=== PATIENT | female | born 1955 ===

== ENCOUNTER 2016-11-08 10:43 | Emergency (ER) | payer BC ==
[2016-11-08 10:55] VITALS: BP 147/78; PULSE 82; TEMP 97.9; O2SAT 97; BMI 31.7
--- NOTE | 2016-11-08 12:30 | ED PDOC ---
HPI: Back Time Seen by Provider: 11/08/16 11:11 Chief Complaint (Nursing): Back Pain Chief Complaint (Provider): Back Pain History Per: Patient History/Exam Limitations: no limitations Onset/Duration Of Symptoms: Days Current Symptoms Are (Timing): Still Present Quality Of Discomfort: "Pain" Severity: Mild Previous Symptoms: None Associated Symptoms: None Exacerbating Factor(s): Turning, Movement Additional Complaint(s): Patient is a 61 year old female who presents to ED for lower back pain that began yesterday. Patient described pain as left sided, radiating up and worsened with movement or twisting. Denies left pain or abdominal pain. 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 Past Medical History Reviewed: Historical Data, Nursing Documentation, Vital Signs Vital Signs: Last Vital Signs Temp 97.9 F 11/08/16 10:54 Pulse 82 11/08/16 10:54 Resp BP 147/78 11/08/16 10:54 Pulse Ox 97 11/08/16 10:54 - Medical History PMH: Hyperthyroidism - Surgical History Surgical History: No Surg Hx - Family History Family History: States: No Known Family Hx - Living Arrangements Living Arrangements: With Family - Immunization History Hx Tetanus Toxoid Vaccination: No Hx Influenza Vaccination: No Hx Pneumococcal Vaccination: No - Home Medications Home Medications: Ambulatory Orders Medication Instructions Recorded Acetaminophen/Oxycodone Hydr 1 tab PO Q8 #15 tab 03/30/13 [Percocet 325 mg-5 mg] Naprosyn 03/30/13 Naproxen 375 mg PO Q8 PRN #21 tab 10/29/14 diaZEpam [Valium] 5 mg PO Q6 PRN #14 tab 10/29/14 oxyCODONE/Acetaminophen [Percocet 1 ea PO Q6 #10 tab 10/29/14 5/325 mg Tab] Acetaminophen/Codeine Phosph 1 tab PO Q4 #10 tab 02/02/15 [Acetaminophen and Codeine Phosphate #3 300 mg] Polymyxin/Trimethoprim Sulfate 100 drop OD BID #1 bottle 04/22/16 [Polytrim Ophth Soln] Cyclobenzaprine [Cyclobenzaprine 10 mg PO TID PRN #15 tab 11/08/16 HCl] Naproxen 500 mg PO BID #20 tab 11/08/16 - Allergies Allergies/Adverse Reactions: Allergies Allergy/AdvReac Type Severity Reaction Status Date / Time No Known Allergies Allergy Verified 11/08/16 11:02 Review of Systems Constitutional: Negative for: Fever, Weakness Eyes: Negative for: Vision Change Respiratory: Negative for: Shortness of Breath Gastrointestinal: Negative for: Nausea, Vomiting, Abdominal Pain Musculoskeletal: Positive for: Back Pain. Negative for: Neck Pain, Leg Pain Neurological: Negative for: Weakness, Numbness, Dizziness Physical Exam - Reviewed Nursing Documentation Reviewed: Yes Vital Signs Reviewed: Yes - Physical Exam Appears: Positive for: Non-toxic, No Acute Distress Skin: Positive for: Normal Color, Warm Eye Exam: Positive for: Normal appearance Neck: Positive for: Normal, Painless ROM, Supple Cardiovascular/Chest: Positive for: Regular Rate, Rhythm. Negative for: Murmur Respiratory: Positive for: Normal Breath Sounds. Negative for: Respiratory Distress Back: Positive for: Normal Inspection, Other (left paraspinal (-) midline (-) deformity) Extremity: Positive for: Normal ROM. Negative for: Pedal Edema Neurologic/Psych: Positive for: Alert, Oriented - ECG O2 Sat by Pulse Oximetry: 97 (RA) Pulse Ox Interpretation: Normal - Progress Re-evaluation Time: 13:41 Condition: Re-examined, Improved Medical Decision Making Medical Decision Making: Time: 1145 Initial impression: Muscle spasm,atraumatic low risk back pain. Initial plan: -- Flexeril -- toradol -- U/A Time: 1320 Patient on re-evaluation reports feeling better, pain improved. Instructed patient to take Motrin as needed at home for pain and to follow up with PMD Scribe Attestation: Documented by Verna Tripathi acting as a scribe for Alessandro Metcalf MD. Scribe Attestation: All medical record entries made by the Scribe were at my direction and personally dictated by me. I have reviewed the chart and agree that the record accurately reflects my personal performance of the history, physical exam, medical decision making, and the department course for this patient. I have also personally directed, reviewed, and agree with the discharge instructions and disposition. Disposition - Clinical Impression Clinical Impression: Back pain - Patient ED Disposition Is Patient to be Admitted: No Doctor Will See Patient In The: Office Counseled Patient/Family Regarding: Studies Performed, Diagnosis, Need For Followup - Disposition Referrals: Kingsley Beavers MD [Family Provider] - Disposition: Routine/Home Disposition Time: 13:42 Condition: GOOD Additional Instructions: Follow up with your PCP in 2-3 days. Prescriptions: Cyclobenzaprine [Cyclobenzaprine HCl] 10 mg PO TID PRN #15 tab PRN Reason: Muscle Spasm Naproxen 500 mg PO BID #20 tab Instructions: Muscle Spasm (ED)
[2016-11-08 12:41] LABS: RBC URINE 2 /hpf (0-3); URINE BILIRUBIN NEGATIVE (NEGATIVE); URINE BLOOD MODERATE (NEGATIVE); URINE COLOR STRAW (YELLOW); URINE GLUCOSE (UA) NEG (Normal); URINE KETONE NEGATIVE (NEGATIVE); URINE LEUKOCYTE ESTERASE NEG Leu/uL (Negative); URINE PROTEIN NEGATIVE (NEGATIVE); URINE UROBILINOGEN 0.2-1.0 mg/dL (0.2-1.0); WBC URINE 1 /hpf (0-5)
== END 2016-11-08 14:02 | disposition home or self-care (01) ==
LOC: H.ER 10:43
DX: M54.9 Dorsalgia, unspecified (principal); E05.90 Thyrotoxicosis, unspecified without thyrotoxic crisis or storm
CPT/HCPCS: 81003; 96372; 99282; J1885

== ENCOUNTER 2016-11-09 21:01 | Emergency (ER) | payer BC ==
[2016-11-09 21:01] VITALS: BMI 31.7
[2016-11-09 21:05] VITALS: BP 156/81; PULSE 95; RESP 16; TEMP 98.9; O2SAT 100
--- NOTE | 2016-11-09 21:56 | ED PDOC ---
HPI: Back Time Seen by Provider: 11/09/16 21:27 Chief Complaint (Nursing): Back Pain Chief Complaint (Provider): Back Pain History Per: Patient, Family History/Exam Limitations: no limitations Onset/Duration Of Symptoms: Days Current Symptoms Are (Timing): Still Present Additional Complaint(s): 21:27 Court Salvador is a 61 year old female that presents to the ED with a chief complaint of left-sided back pain that radiates to her lower and upper back that is worsened with deep-breathing and walking. She has associated mild shortness of breath. Patient was seen in ED yesterday, was given Toradol and muscle relaxer, had some improvement and was diagnosed with a muscle spasm. However, patient reports that from the time she got home through today her pain has progressively worsened. She denies any chest pain, difficulty urinating or hematuria, abdominal pain, or fever. Last BM was yesterday morning, PERC neg. Past Medical History Reviewed: Historical Data, Nursing Documentation, Vital Signs Vital Signs: Last Vital Signs Temp 98.9 F 11/09/16 21:03 Pulse 95 H 11/09/16 21:03 Resp 16 11/09/16 21:03 BP 156/81 H 11/09/16 21:03 Pulse Ox 100 11/09/16 21:03 - Medical History PMH: Hyperthyroidism - Family History Family History: States: Unknown Family Hx - Immunization History Hx Tetanus Toxoid Vaccination: No Hx Influenza Vaccination: No Hx Pneumococcal Vaccination: No - Home Medications Home Medications: Ambulatory Orders Medication Instructions Recorded Acetaminophen/Oxycodone Hydr 1 tab PO Q8 #15 tab 03/30/13 [Percocet 325 mg-5 mg] Naprosyn 03/30/13 Naproxen 375 mg PO Q8 PRN #21 tab 10/29/14 diaZEpam [Valium] 5 mg PO Q6 PRN #14 tab 10/29/14 oxyCODONE/Acetaminophen [Percocet 1 ea PO Q6 #10 tab 10/29/14 5/325 mg Tab] Acetaminophen/Codeine Phosph 1 tab PO Q4 #10 tab 02/02/15 [Acetaminophen and Codeine Phosphate #3 300 mg] Polymyxin/Trimethoprim Sulfate 100 drop OD BID #1 bottle 04/22/16 [Polytrim Ophth Soln] Cyclobenzaprine [Cyclobenzaprine 10 mg PO TID PRN #15 tab 11/08/16 HCl] Naproxen 500 mg PO BID #20 tab 11/08/16 Nitrofurantoin Macrocrystals 100 mg PO BID #14 cap 11/09/16 [Macrobid] - Allergies Allergies/Adverse Reactions: Allergies Allergy/AdvReac Type Severity Reaction Status Date / Time No Known Allergies Allergy Verified 11/08/16 11:02 Review of Systems Constitutional: Negative for: Fever Cardiovascular: Negative for: Chest Pain Respiratory: Positive for: Shortness of Breath (slight) Gastrointestinal: Negative for: Abdominal Pain Genitourinary Female: Negative for: Dysuria, Hematuria Musculoskeletal: Positive for: Back Pain (left-sided, radiated to upper and lower portion of back) Physical Exam - Reviewed Nursing Documentation Reviewed: Yes Vital Signs Reviewed: Yes - Physical Exam Appears: Positive for: Non-toxic, In Acute Distress (Pt is in mild acute distress) Head Exam: Positive for: ATRAUMATIC, NORMOCEPHALIC Skin: Positive for: Normal Color, Warm Cardiovascular/Chest: Positive for: Regular Rate, Rhythm. Negative for: Murmur Respiratory: Positive for: Normal Breath Sounds. Negative for: Respiratory Distress Gastrointestinal/Abdominal: Positive for: Soft. Negative for: Tenderness Back: Negative for: Normal Inspection (TTP left upper back) Neurologic/Psych: Positive for: Alert, Oriented - Laboratory Results Result Diagrams: 11/09/16 21:51 11/09/16 21:51 - ECG O2 Sat by Pulse Oximetry: 100 (RA) Pulse Ox Interpretation: Normal Medical Decision Making Medical Decision Makin:47 Impression: Muscle Spasm Initial Plan: * CBC * CMP * Urinalysis * D-Dimer * Toradol 50 mg IV * * Ct negative fo renal stone * UA: shows UTI- will d.c with macrobid and advised to f.u with pmd stable VS and well appearing in ED however if worsened with fever to return to Ed. Scribe Attestation: Documented by Dagmar Burger, acting as a scribe for Vaishali Nj PA-C. Provider Scribe Attestation: All medical record entries made by the Scribe were at my direction and personally dictated by me. I have reviewed the chart and agree that the record accurately reflects my personal performance of the history, physical exam, medical decision making, and the department course for this patient. I have also personally directed, reviewed, and agree with the discharge instructions and disposition. Disposition - Clinical Impression Clinical Impression: UTI (urinary tract infection) - Patient ED Disposition Is Patient to be Admitted: No Counseled Patient/Family Regarding: Studies Performed, Diagnosis, Need For Followup, Rx Given - Disposition Referrals: [facility] [Outside] [facility] [Outside] Disposition: Routine/Home Disposition Time: 23:02 Condition: STABLE Prescriptions: Nitrofurantoin Macrocrystals [Macrobid] 100 mg PO BID #14 cap Instructions: Urinary Tract Infection in Women (GEN) Print Language: MONGOLIAN
[2016-11-09 22:08] LABS: BASO # 0.1 K/uL (0.0-0.2); EOS # 0.3 K/uL (0.0-0.7); EOS % 2.5 % (0.0-4.0); HEMATOCRIT 41.7 % (34.0-47.0); LYMPH # 2.1 K/uL (1.0-4.3); LYMPH % 17.4 % (20.0-40.0); MEAN CELL VOLUME 83.9 fl (81.0-99.0); MEAN CORPUSCULAR HEMOGLOBIN 27.8 pg (27.0-31.0); MEAN CORPUSCULAR HGB CONC 33.1 g/dL (33.0-37.0); MEAN PLATELET VOLUME 7.6 fl (7.2-11.7); MONO # 0.6 K/uL (0.0-0.8); MONO % 4.8 % (0.0-10.0); NEUT # 9.1 K/uL (1.8-7.0); NEUT % 74.3 % (50.0-75.0); RED CELL DISTRIBUTION WIDTH 13.8 % (11.5-14.5); WHITE BLOOD COUNT 12.3 K/uL (4.8-10.8)
[2016-11-09 22:14] LABS: RBC URINE 12 /hpf (0-3); URINE BILIRUBIN NEGATIVE (NEGATIVE); URINE BLOOD SMALL (NEGATIVE); URINE COLOR YELLOW (YELLOW); URINE GLUCOSE (UA) NEG (Normal); URINE KETONE NEGATIVE (NEGATIVE); URINE LEUKOCYTE ESTERASE LARGE Leu/uL (Negative); URINE PROTEIN NEGATIVE (NEGATIVE); URINE UROBILINOGEN 0.2-1.0 mg/dL (0.2-1.0); WBC URINE 14 /hpf (0-5)
[2016-11-09 22:25] LABS: ALB/GLOB RATIO 1.3 (1.0-2.1); ALKALINE PHOSPHATASE 129 U/L (38-126); ALT/SGPT 34 U/L (9-52); AST/SGOT 30 U/L (14-36); BILIRUBIN,TOTAL 0.3 mg/dl (0.2-1.3); BLOOD UREA NITROGEN 20 mg/dl (7-17); CARBON DIOXIDE 25 mmol/L (22-30); CHLORIDE 106 mmol/L (98-107); GFR AFRICAN-AMERICAN > 60; GLUCOSE,RANDOM 129 mg/dL (65-105); POTASSIUM 4.1 MMOL/L (3.6-5.0); SODIUM 141 mmol/l (132-148)
--- NOTE | 2016-11-09 23:00 | CT ---
EXAM: CT Abdomen and Pelvis Without Intravenous Contrast CLINICAL HISTORY: 61 years old, female; Pain; Abdominal pain; Flank; Left; Additional info: Left flank tenderness TECHNIQUE: Axial computed tomography images of the abdomen and pelvis without intravenous contrast. This CT exam was performed using one or more of the following dose reduction techniques: automated exposure control, adjustment of the mA and/or kV according to patient size, and/or use of iterative reconstruction technique. Coronal and sagittal reformatted images were created and reviewed. COMPARISON: No relevant prior studies available. FINDINGS: Lower thorax: Minimal atelectasis/scarring. ABDOMEN: Liver: Unremarkable. Gallbladder and bile ducts: No calcified stones. No ductal dilation. Pancreas: Unremarkable. No ductal dilation. Spleen: No splenomegaly. Adrenals: No mass. Kidneys and ureters: No renal calculi. No hydronephrosis. Stomach and bowel: Few segmental areas of underdistention of colon. No definite mural thickening. No obstruction. Appendix: Normal caliber. No inflammation. PELVIS: Bladder: Unremarkable. No stones. Reproductive: Unremarkable as visualized. ABDOMEN and PELVIS: Intraperitoneal space: No significant fluid collection. No free air. Bones/joints: Mild degenerative changes of spine. No acute fracture. Soft tissues: Unremarkable. Vasculature: Mild atherosclerotic disease of iliac arteries. No abdominal aortic aneurysm. Lymph nodes: No pathologically enlarged lymph nodes. IMPRESSION: 1. No CT evidence of urolithiasis. 2. Incidental/non-acute findings are described above.
== END 2016-11-09 23:09 | disposition home or self-care (01) ==
LOC: H.ER 21:01
DX: N39.0 Urinary tract infection, site not specified (principal); M62.838 Other muscle spasm; E05.90 Thyrotoxicosis, unspecified without thyrotoxic crisis or storm
CPT/HCPCS: 74176; 80053; 81003; 85025; 85378; 96374; 99283; J1885